=== PATIENT | female | born 1950 | race Caucasian/White ===

== ENCOUNTER 2019-11-24 22:43 | Inpatient (IN) ==
[2019-11-24 23:21] LABS: Basophils # 0.1 K/mcL (0.0-0.2); Basophils % 0.7 %; Eosinophils # 0.2 K/mcL (0.0-0.6); Eosinophils % 2.9 %; Hematocrit 38.5 % (35.3-44.9); Hemoglobin 11.9 g/dL (11.5-15.4); Immature Granulocytes % 0.2 % (0-4); Lymphocytes # 2.3 K/mcL (0.6-4.6); Lymphocytes % 27.2 %; Mean Corpuscular HGB Conc 30.9 g/dL (31.6-35.5); Mean Corpuscular Hemoglobin 29.4 pg (28.0-33.3); Mean Corpuscular Volume 95.1 fL (83.0-100.0); Mean Platelet Volume 10.1 fL (9.4-12.4); Monocytes # 0.6 K/mcL (0.0-1.3); Monocytes % 7.4 %; Neutrophils # 5.1 K/mcL (1.6-8.9); Platelet Count 298 K/mcL (140-400); Red Blood Count 4.05 M/mcL (3.82-4.97); Segmented Neutrophils % 61.6 %; White Blood Count 8.3 K/mcL (4.3-11.1)
[2019-11-24 23:24] LABS: INR 0.9; Prothrombin Time 9.9 Seconds (9.4-12.1)
[2019-11-24] MEDS ORDERED: Isovue-370 500 ML BOTTLE IVP ONE (23:36)
[2019-11-24] MEDS ORDERED: Furosemide 40 MG/4 ML VIAL IVP ONE (23:40)
[2019-11-24 23:41] LABS: BUN/Creatinine Ratio 18 (6-26); Blood Urea Nitrogen 20 mg/dL (8-23); Calcium 9.6 mg/dL (8.6-10.3); Carbon Dioxide 25 mEq/L (23-29); Chloride 107 mEq/L (98-107); Glucose 119 mg/dL (70-105); Osmolality,Calculated 292 (280-300); Potassium 4.3 mEq/L (3.5-5.1); Sodium 139 mEq/L (136-145); Troponin I < 0.03 ng/mL (< 0.04); eGFR For African Americans 60 (> 60); eGFR For Non-African Americans 49 (> 60)
[2019-11-25] MEDS: Nitroglycerin 0.4 MG TAB.SUBL SL PRN ×2 (01:27→01:32)
[2019-11-25] MEDS ORDERED: Naloxone 0.4 MG/ML INJ IVP PRN (02:52)
[2019-11-25] MEDS: Acetaminophen 325 MG TABLET PO PRN ×2 (09:46→18:34)
[2019-11-25] MEDS: lisinopriL 20 MG TABLET PO SCH (12:35)
[2019-11-25] MEDS ORDERED: Furosemide 40 MG/4 ML VIAL IVP ONE (13:45)
[2019-11-25] MEDS ORDERED: Ipratropium/Albuterol Neb 3 ML IH PRN (13:46)
[2019-11-26 02:59] LABS: BUN/Creatinine Ratio 18 (6-26); Blood Urea Nitrogen 17 mg/dL (8-23); Calcium 9.3 mg/dL (8.6-10.3); Carbon Dioxide 28 mEq/L (23-29); Chloride 106 mEq/L (98-107); Glucose 96 mg/dL (70-105); Osmolality,Calculated 291 (280-300); Potassium 3.2 mEq/L (3.5-5.1); Sodium 140 mEq/L (136-145); eGFR For African Americans > 60 (> 60); eGFR For Non-African Americans 60 (> 60)
[2019-11-26] MEDS: lisinopriL 20 MG TABLET PO SCH (09:06)
[2019-11-26] MEDS: Aspirin 325 MG TABLET PO SCH (09:07)
[2019-11-26] MEDS: hydroCHLOROthiazide 25 MG TABLET PO SCH (15:13)
[2019-11-27 01:48] LABS: BUN/Creatinine Ratio 21 (6-26); Blood Urea Nitrogen 20 mg/dL (8-23); Calcium 9.3 mg/dL (8.6-10.3); Carbon Dioxide 27 mEq/L (23-29); Chloride 106 mEq/L (98-107); Glucose 90 mg/dL (70-105); Osmolality,Calculated 290 (280-300); Potassium 3.8 mEq/L (3.5-5.1); Sodium 139 mEq/L (136-145); eGFR For African Americans > 60 (> 60); eGFR For Non-African Americans 58 (> 60)
[2019-11-27] MEDS ORDERED: Isosorbide MONOnitrate (24 HR) 30 MG TAB.ER.24H PO SCH (09:00)
[2019-11-27] MEDS: lisinopriL 20 MG TABLET PO SCH (09:24)
[2019-11-27] MEDS: Aspirin 325 MG TABLET PO SCH (09:24)
[2019-11-27] MEDS: hydroCHLOROthiazide 25 MG TABLET PO SCH (09:24)
[2019-11-27 12:12] VITALS: BP 135/69
== END 2019-11-27 15:30 | disposition home or self-care (01) | DRG 304 ==
LOC: EMEROOARM 22:43 → CDU 22:43 → SUATTDRO 11-25 13:53 → 2ANU 11-25 16:32
PROVIDERS: ADMIT Internal Medicine; ATTEND Internal Medicine